=== PATIENT | female | born 1950 | race Asian ===

== ENCOUNTER → 2017-02-18 | Outpatient (CLI) | payer OTHER | LOC: RAD 11:13 | DX: Z12.31 Encounter for screening mammogram for malignant neoplasm of breast (principal) ==

== ENCOUNTER → 2018-04-20 | Outpatient (CLI) | payer OTHER | LOC: RAD 15:10 | DX: Z12.31 Encounter for screening mammogram for malignant neoplasm of breast (principal) ==

== ENCOUNTER → 2019-04-30 | Outpatient (CLI) | payer OTHER | LOC: RAD 11:06 | DX: Z12.31 Encounter for screening mammogram for malignant neoplasm of breast (principal) ==

== ENCOUNTER → 2020-04-26 | Outpatient (CLI) | payer OTHER | LOC: BC 13:14 | PROVIDERS: ATTEND Family Medicine | DX: Z12.31 Encounter for screening mammogram for malignant neoplasm of breast (principal); Z13.820 Encounter for screening for osteoporosis; M85.88 Other specified disorders of bone density and structure, other site ==

== ENCOUNTER → 2021-05-25 | Outpatient (CLI) | payer OTHER | END | disposition home or self-care (01) | LOC: BC 12:54 | PROVIDERS: ATTEND Family Medicine | DX: Z12.31 Encounter for screening mammogram for malignant neoplasm of breast (principal) ==